=== PATIENT | female | born 1950 | race Caucasian/White ===

== ENCOUNTER 2018-01-06 15:00 | Outpatient (CLI) | payer MEDICARE | END 2018-01-06 15:01 | disposition home or self-care (01) | LOC: BICMAMMO 15:00 | PROVIDERS: ATTEND Internal Medicine Medical Oncology | DX: Z12.31 Encounter for screening mammogram for malignant neoplasm of breast (principal); M81.0 Age-related osteoporosis without current pathological fracture | CPT/HCPCS: 77063; 77067; 77080 ==

== ENCOUNTER 2018-04-14 06:46 | Outpatient (CLI) | payer MEDICARE ==
--- NOTE | 2018-04-14 08:16 | ULT ---
ABDOMINAL ULTRASOUND: DATE: 04/14/2018. PROVIDED CLINICAL HISTORY: Enlarged liver. FINDINGS: The visualized abdominal aorta, IVC, and pancreas appear normal. The liver is enlarged, measuring ab out 21.1 cm in craniocaudal dimension at the right hepatic lobe. There is coarsening and increased e chogenicity of the hepatic parenchyma compatible with fatty infiltration. There is no evidence for m ass or intrahepatic biliary ductal dilatation. The common duct is not dilated. The kidneys demonstr ate no hydronephrosis or mass. The gallbladder is not visualized compatible with the provided clinic al history of prior cholecystectomy. The spleen is enlarged, measuring about 15.6 x 6.9 x 7.8 cm. IMPRESSION: 1. Hepatosplenomegaly. 2. Fatty infiltration of the liver. POS: [facility]
== END 2018-04-14 06:47 | disposition home or self-care (01) ==
LOC: BICULT 06:46
PROVIDERS: ATTEND Family Medicine
DX: R16.2 Hepatomegaly with splenomegaly, not elsewhere classified (principal); K76.0 Fatty (change of) liver, not elsewhere classified
CPT/HCPCS: 76700

== ENCOUNTER 2021-06-13 08:42 | Outpatient (CLI) | payer MEDICARE | END 2021-06-13 08:43 | disposition home or self-care (01) | LOC: BICRAD 08:42 | PROVIDERS: ATTEND Allergy & Immunology | DX: R05.9 Cough, unspecified (principal) | CPT/HCPCS: 71046 ==

== ENCOUNTER 2021-06-27 13:43 | Outpatient (CLI) | payer MEDICARE | END 2021-06-27 13:44 | disposition home or self-care (01) | LOC: BICMAMMO 13:43 | PROVIDERS: ATTEND Internal Medicine | DX: Z13.820 Encounter for screening for osteoporosis (principal) | CPT/HCPCS: 77080 ==

== ENCOUNTER 2021-10-03 08:47 | Outpatient (CLI) | payer MEDICARE | END 2021-10-03 08:48 | disposition home or self-care (01) | LOC: BICMAMMO 08:47 | PROVIDERS: ATTEND Internal Medicine | DX: Z12.31 Encounter for screening mammogram for malignant neoplasm of breast (principal); Z91.89 Other specified personal risk factors, not elsewhere classified | CPT/HCPCS: 77063; 77067 ==

== ENCOUNTER 2023-05-14 10:07 | Emergency (ER) | payer OTHER ==
[2023-05-14] MEDS ORDERED: Acetaminophen 500 MG TAB ONE (10:47)
== END 2023-05-14 13:56 | disposition home or self-care (01) ==
LOC: ERS 10:07
DX: S00.83XA Contusion of other part of head, initial encounter (principal); S80.02XA Contusion of left knee, initial encounter; S80.01XA Contusion of right knee, initial encounter; E11.9 Type 2 diabetes mellitus without complications; I10 Essential (primary) hypertension; E78.5 Hyperlipidemia, unspecified; E03.9 Hypothyroidism, unspecified; Z79.899 Other long term (current) drug therapy; Z79.4 Long term (current) use of insulin; Z79.84 Long term (current) use of oral hypoglycemic drugs; W01.10XA Fall on same level from slipping, tripping and stumbling with subsequent striking against unspecified object, initial encounter; Y93.01 Activity, walking, marching and hiking
CPT/HCPCS: 70450; 72125

== ENCOUNTER 2023-05-28 12:37 | Emergency (ER) | payer OTHER ==
[~2023-05-28 12:37] MED LIST: Iopamidol-370 76% 500 ML MDV (1 ML CHARGE) ONE
[2023-05-28 14:57] LABS: #Eosinphils 0.2 thou/uL (0.0-0.7); #Monocytes 0.4 thou/uL (0.11-0.59); #Neutrophils 3.2 thou/uL (1.40-6.50); %Basophils 0.4 % (0.0-1.0); %Lymphocytes 24.8 % (21.0-51.0); %Monocytes 8.1 % (0.0-10.0); %Neutrophils 63.5 % (42.0-75.0); Hematocrit 33.9 % (36.0-47.0); Hemoglobin 11.1 g/dL (12.0-16.0); Mean Corpuscular HGB CONC 32.7 g/dL (32.0-36.0); Mean Corpuscular Hemoglobin 26.5 pg (27.0-31.0); Mean Corpuscular Volume 80.9 fl (78.0-98.0); Mean Platelet Volume 10.3 fL (7.4-10.4); Platelet Count 157 10x3/uL (130-400); RBC Distribution Width 14.3 % (11.5-14.5); Red Blood Cell (RBC) Count 4.19 mill/uL (4.20-5.40)
[2023-05-28 15:34] LABS: ALT (SGPT) 16 U/L (8-55); AST (SGOT) 19 U/L (5-34); Albumin 3.7 g/dL (3.4-4.8); Alkaline Phosphatase 84 U/L (40-110); Anion Gap 12 mmol/L (10-20); BUN (Urea Nitrogen) 14 mg/dL (9.8-20.1); Bilirubin, Total 0.7 mg/dL (0.2-1.2); Calc. Creatinine Clearance 0 mL/min (70-130); Calcium 9.3 mg/dL (7.8-10.44); Carbon Dioxide 28 mmol/L (23-31); Chloride 101 mmol/L (98-107); Estimated GFR 70; Globulin 3.4 g/dL (2.4-3.5); Glucose 243 mg/dL (83-110); Potassium 3.9 mmol/L (3.5-5.1); Protein, Total 7.1 g/dL (5.8-8.1); Sodium 137 mmol/L (136-145)
== END 2023-05-28 17:47 | disposition home or self-care (01) ==
LOC: ERS 12:37
DX: S06.0X0D Concussion without loss of consciousness, subsequent encounter (principal); S80.02XD Contusion of left knee, subsequent encounter; E11.9 Type 2 diabetes mellitus without complications; Z79.84 Long term (current) use of oral hypoglycemic drugs; W22.8XXD Striking against or struck by other objects, subsequent encounter
CPT/HCPCS: 36415; 80053; 83605; 85025; 87040; Q9967

== ENCOUNTER 2023-09-09 16:56 | Emergency (ER) | payer OTHER ==
[2023-09-09 17:38] LABS: #Eosinphils 0.2 thou/uL (0.0-0.7); #Monocytes 0.6 thou/uL (0.11-0.59); %Basophils 0.6 % (0.0-1.0); %Eosinophils 3.1 % (0.0-10.0); %Lymphocytes 29.4 % (21.0-51.0); %Monocytes 8.1 % (0.0-10.0); %Neutrophils 58.2 % (42.0-75.0); Hematocrit 36.5 % (36.0-47.0); Hemoglobin 12.4 g/dL (12.0-16.0); Mean Corpuscular Hemoglobin 26.2 pg (27.0-31.0); Mean Corpuscular Volume 77.2 fl (78.0-98.0); Mean Platelet Volume 11.2 fL (7.4-10.4); Platelet Count 182 10x3/uL (130-400); RBC Distribution Width 13.8 % (11.5-14.5); Red Blood Cell (RBC) Count 4.73 mill/uL (4.20-5.40); White Blood Cell (WBC) Count 6.9 10x3/uL (4.8-10.8)
[2023-09-09 17:48] LABS: Actual Bicarbonate (HCO3v) 23.5 mEq/L (22-28); Base Excess -2.8 mEq/L (-2.0 to +3.0); Calcium, Ionized (venous) 1.21 mmol/L (1.16-1.32); Chloride (VBG) 98 mmol/L (98-106); Hematocrit-VBG 39 % (36.0-47.0); Hemoglobin (Hb) 13.2 g/dL (11.7-16.1); Potassium (VBG) 4.17 mmol/L (3.70-5.30); Sodium 136 mmol/L (133-146); pH (venous) 7.318 (7.32-7.43)
[2023-09-09 17:58] LABS: Troponin I Less than 0.010 ng/mL (< 0.028)
[2023-09-09 18:01] LABS: ALT (SGPT) 15 U/L (8-55); AST (SGOT) 30 U/L (5-34); Albumin 4.1 g/dL (3.4-4.8); Alkaline Phosphatase 111 U/L (40-110); Anion Gap 14 mmol/L (10-20); BUN (Urea Nitrogen) 22 mg/dL (9.8-20.1); Calc. Creatinine Clearance 0 mL/min (70-130); Calcium 9.9 mg/dL (7.8-10.44); Carbon Dioxide 25 mmol/L (23-31); Chloride 100 mmol/L (98-107); Estimated GFR 57; Globulin 3.4 g/dL (2.4-3.5); Glucose 276 mg/dL (83-110); Lipase 45 U/L (8-78); Potassium 4.7 mmol/L (3.5-5.1); Protein, Total 7.5 g/dL (5.8-8.1); Sodium 134 mmol/L (136-145)
[2023-09-09 20:01] LABS: Bacteria/HPF None Seen HPF (None Seen); Bilirubin Negative (Negative); Blood, Urine Negative (Negative); CAUTI Indications for Culture Dysuria,urgency,freq; Clarity Clear (Clear); Glucose, Urine (Dipstick) 100 mg/dL (Negative); Ketone, Urine Negative (Negative); Leukocyte 75 Leu/uL (Negative); Nitrite Negative (Negative); Protein, Urine (Dipstick) Negative (Neg-Trace); RBC/HPF 0-3 HPF (0-3); Specific Gravity, Urine 1.007 (1.002-1.036); Squamous Epithelial 0-3 HPF (0-3); Urobilinogen Normal mg/dL (Less than 2); WBC/HPF 0-3 HPF (0-3)
[2023-09-09 20:02] LABS: Urine Culture Reflex No No
[2023-09-09] MEDS ORDERED: Fluconazole 100 MG TAB PO SCH (21:15)
== END 2023-09-09 21:35 | disposition home or self-care (01) ==
LOC: ERS 16:56
DX: B37.31 Acute candidiasis of vulva and vagina (principal); E11.65 Type 2 diabetes mellitus with hyperglycemia
CPT/HCPCS: 36416; 71045; 80053; 81001; 82805; 83690; 84484; 85025; 93005; 96360

== ENCOUNTER 2024-05-12 08:40 | Outpatient (CLI) | payer OTHER | END 2024-05-12 08:41 | disposition home or self-care (01) | LOC: BICMAMMO 08:40 | DX: Z12.31 Encounter for screening mammogram for malignant neoplasm of breast (principal); M81.0 Age-related osteoporosis without current pathological fracture; Z78.0 Asymptomatic menopausal state; Z91.89 Other specified personal risk factors, not elsewhere classified | CPT/HCPCS: 77063; 77067; 77080 ==

== ENCOUNTER 2024-07-09 11:52 | Inpatient (IN) | payer OTHER ==
[2024-07-09 12:52] LABS: #Basophils 0.05 10x3/uL (0.0-0.2); %Basophils 0.3 % (0.0-1.0); %Eosinophils 0.6 % (0.0-10.0); %Lymphocytes 15.6 % (21.0-51.0); %Monocytes 8.4 % (0.0-10.0); %Neutrophils 74.5 % (42.0-75.0); Hematocrit 42.3 % (36.0-47.0); Hemoglobin 14.3 g/dL (12.0-16.0); Mean Corpuscular HGB CONC 33.8 g/dL (32.0-36.0); Mean Corpuscular Hemoglobin 25.2 pg (27.0-31.0); Mean Corpuscular Volume 74.5 fL (78.0-98.0); Mean Platelet Volume 9.8 fL (7.4-10.4); Platelet Count 324 10x3/uL (130-400); RBC Distribution Width 14.1 % (11.5-14.5); Red Blood Cell (RBC) Count 5.68 mill/uL (4.20-5.40)
[2024-07-09 13:08] LABS: ALT (SGPT) 21 U/L (8-55); AST (SGOT) 31 U/L (5-34); Albumin 3.8 g/dL (3.4-4.8); Alkaline Phosphatase 75 U/L (40-110); Anion Gap 15 mmol/L (10-20); BUN (Urea Nitrogen) 26 mg/dL (9.8-20.1); Bilirubin, Total 1.7 mg/dL (0.2-1.2); Calc. Creatinine Clearance 0 mL/min (70-130); Calcium 9.1 mg/dL (7.8-10.44); Carbon Dioxide 24 mmol/L (23-31); Chloride 93 mmol/L (98-107); Estimated GFR 33; Globulin 3.8 g/dL (2.4-3.5); Glucose 214 mg/dL (83-110); Lipase 38 U/L (8-78); Potassium 2.9 mmol/L (3.5-5.1); Protein, Total 7.6 g/dL (5.8-8.1); Sodium 129 mmol/L (136-145)
[2024-07-09] MEDS ORDERED: Morphine 4 MG/ML VIAL ONE (13:43)
[2024-07-09] MEDS ORDERED: Ondansetron PF 4 MG/2 ML Vial ONE (13:44)
[2024-07-09] MEDS ORDERED: Iopamidol-370 76% 500 ML MDV (1 ML CHARGE) ONE (14:52)
[2024-07-09 15:51] LABS: Bacteria/HPF None Seen HPF (None Seen); Bilirubin Negative (Negative); Blood, Urine Trace (Negative); CAUTI Indications for Culture Pelvic or flank pain; Clarity Clear (Clear); Glucose, Urine (Dipstick) Normal (Negative); Ketone, Urine Negative (Negative); Leukocyte Negative Leu/uL (Negative); Nitrite Negative (Negative); Protein, Urine (Dipstick) 30 mg/dL (Neg-Trace); Squamous Epithelial 0-3 HPF (0-3); Urobilinogen Normal mg/dL (Less than 2); WBC/HPF 0-3 HPF (0-3)
[2024-07-09 15:54] LABS: Specific Gravity, Urine Greater than 1.060 (1.002-1.036); Urine Culture Reflex No No
[2024-07-09] MEDS ORDERED: dilTIAZem 25 MG/5 ML VIAL ONE (16:15)
[2024-07-09] MEDS ORDERED: Potassium Chloride 20 MEQ TAB ONE (16:15)
[2024-07-09 16:40] LABS: Troponin I 1.262 ng/mL (< 0.028)
[2024-07-09] MEDS ORDERED: Sodium Chloride 0.9% 100 ML ONE (16:45)
[2024-07-09] MEDS ORDERED: cefTRIAXone (ROCEPHIN) 1 GM VIAL ONE (16:45)
[2024-07-09] MEDS ORDERED: Aspirin Chewable 81 MG TAB ONE (17:28)
[2024-07-09 17:35] LABS: INR-International Normal Ratio 1.1; PTT 27.2 sec (22.9-36.1); Prothrombin Time 14.2 sec (12.0-14.7)
[2024-07-09 18:38] LABS: Critical Call Chem Troponin I RESULT DECREASING; Troponin I 1.244 ng/mL (< 0.028)
[2024-07-09] MEDS ORDERED: Insulin Lispro 100 UNIT/ML 10 ML VIAL SC PRN (18:58)
[2024-07-09] MEDS ORDERED: Dextrose 50% Abboject 50 ML SYRINGE SLOW IVP PRN (18:58)
[2024-07-09] MEDS ORDERED: Glucagon 1 MG/ML KIT IM PRN (18:58)
[2024-07-09] MEDS ORDERED: Dextrose 5% in Water 1,000 ML IV PRN (18:58)
[2024-07-09] MEDS ORDERED: Albuterol 200 PUFF (6.7GM INHALER) INH PRN (18:58)
[2024-07-09] MEDS ORDERED: Acetaminophen 650 MG Suppository PR PRN (19:12)
[2024-07-09] MEDS ORDERED: Morphine 2 MG/ML VIAL SLOW IVP PRN (19:13)
[2024-07-09] MEDS ORDERED: Promethazine HCl 12.5 MG in Sodium Chloride 0.9% 50 ML IVPB PRN (19:13)
[2024-07-09 19:27] VITALS: BMI 39.1
[2024-07-09] MEDS: Sodium Chloride 0.9% 1,000 ML IV SCH (19:44)
[2024-07-09] MEDS: Potassium Chloride 20 MEQ TAB PO SCH (20:04)
[2024-07-09] MEDS: Acyclovir 400 mg Tablet PO SCH (20:08)
[2024-07-09] MEDS: Heparin 10,000 UNITS/ 10 ML VIAL SLOW IVP SCH (20:51)
[2024-07-09] MEDS: Heparin 25,000 units/D5W 500 ML IVPB SCH (20:57)
[2024-07-09 21:42] LABS: Magnesium 1.4 mg/dL (1.6-2.6); Phosphorus 2.6 mg/dL (2.3-4.7)
[2024-07-10 00:12] LABS: Troponin I 0.993 ng/mL (< 0.028)
[2024-07-10 03:50] LABS: Anion Gap 12 mmol/L (10-20); BUN (Urea Nitrogen) 31 mg/dL (9.8-20.1); Calc. Creatinine Clearance 73 mL/min (70-130); Calcium 8.1 mg/dL (7.8-10.44); Carbon Dioxide 21 mmol/L (23-31); Chloride 102 mmol/L (98-107); Estimated GFR 53; Glucose 136 mg/dL (83-110); Potassium 3.5 mmol/L (3.5-5.1); Sodium 131 mmol/L (136-145)
[2024-07-10 03:51] LABS: #Basophils 0.04 10x3/uL (0.0-0.2); %Basophils 0.4 % (0.0-1.0); %Eosinophils 1.5 % (0.0-10.0); %Lymphocytes 27.6 % (21.0-51.0); %Monocytes 9.4 % (0.0-10.0); %Neutrophils 60.6 % (42.0-75.0); Hematocrit 34.4 % (36.0-47.0); Hemoglobin 11.3 g/dL (12.0-16.0); Mean Corpuscular HGB CONC 32.8 g/dL (32.0-36.0); Mean Corpuscular Hemoglobin 24.9 pg (27.0-31.0); Mean Corpuscular Volume 75.9 fL (78.0-98.0); Mean Platelet Volume 10.4 fL (7.4-10.4); Platelet Count 164 10x3/uL (130-400); RBC Distribution Width 14.3 % (11.5-14.5); Red Blood Cell (RBC) Count 4.53 mill/uL (4.20-5.40)
[2024-07-10] MEDS: Acetaminophen 325 MG TAB PO PRN (05:02)
[2024-07-10] MEDS ORDERED: Electrolyte Replacement Protocol FS PRN (08:30)
[2024-07-10] MEDS ORDERED: Magnesium 2 GM/50 ML(in water) 2 GM in Premix 1 BAG IVPB SCH (09:30)
[2024-07-10] MEDS: Magnesium Sulfate In Water 4 GM in Premix 1 BAG IVPB SCH (10:26)
[2024-07-10] MEDS ORDERED: dilTIAZem 30 MG TAB PO PRN (10:29)
[2024-07-10] MEDS ORDERED: dilTIAZem 125 MG in Sodium Chloride 0.9% 100 ML IVPB SCH (10:30)
[2024-07-10] MEDS: Vancomycin HCl 125 MG Capsule PO SCH (11:24)
[2024-07-10] MEDS: dilTIAZem 25 MG/5 ML VIAL SLOW IVP SCH (11:25)
[2024-07-10] MEDS: Potassium Chloride 20 MEQ in Premix 1 BAG IVPB SCH ×2 (11:25→23:41)
[2024-07-10] MEDS: Metoprolol Tartrate 25 MG TAB PO SCH ×2 (11:25→20:25)
[2024-07-10] MEDS: Sodium Chloride 0.9% 1,000 ML IV SCH (11:26)
[2024-07-10] MEDS: dilTIAZem 125 MG in Sodium Chloride 0.9% 100 ML IVPB SCH (11:40)
[2024-07-10] MEDS ORDERED: Amiodarone 450 MG in Dextrose 5% in Water 250 ML IVPB SCH (12:00)
[2024-07-10] MEDS: Electrolyte Replacement Protocol 1 EACH FS ONE (13:28)
[2024-07-10] MEDS: Amiodarone 150 MG, Admixture Fee 1 EACH in Dextrose 5% in Water 100 ML IVPB SCH (14:55)
[2024-07-10] MEDS ORDERED: cefTRIAXone\\ROCEPHIN 1 GM in Sodium Chloride 0.9% 100 ML IVPB SCH (17:00)
[2024-07-10 17:48] LABS: Potassium 3.3 mmol/L (3.5-5.1)
[2024-07-10] MEDS ORDERED: NS 0.9% w/ 20 MEQ KCL 1,000 ML/1,000 ML BAG IV SCH (18:00)
[2024-07-10] MEDS: Famotidine 20 MG TAB PO SCH (20:25)
[2024-07-10 21:47] VITALS: BMI 39.1
[2024-07-10 23:42] LABS: Campy jejuni + coli by PCR Negative (Negative); STEC Shiga Toxin 1+2 Negative (Negative); Salmonella spp. by PCR Negative (Negative); Shigella spp + EIEC by PCR Negative (Negative)
[2024-07-11 02:51] LABS: #Basophils 0.05 10x3/uL (0.0-0.2); %Basophils 0.6 % (0.0-1.0); %Eosinophils 2.8 % (0.0-10.0); %Lymphocytes 24.7 % (21.0-51.0); %Monocytes 8.7 % (0.0-10.0); %Neutrophils 62.6 % (42.0-75.0); Hematocrit 34.4 % (36.0-47.0); Hemoglobin 11.3 g/dL (12.0-16.0); Mean Corpuscular HGB CONC 32.8 g/dL (32.0-36.0); Mean Corpuscular Hemoglobin 25.4 pg (27.0-31.0); Mean Corpuscular Volume 77.3 fL (78.0-98.0); Mean Platelet Volume 10.3 fL (7.4-10.4); Platelet Count 173 10x3/uL (130-400); RBC Distribution Width 14.2 % (11.5-14.5); Red Blood Cell (RBC) Count 4.45 mill/uL (4.20-5.40)
[2024-07-11 03:07] LABS: ALT (SGPT) 17 U/L (8-55); AST (SGOT) 22 U/L (5-34); Albumin 3.4 g/dL (3.4-4.8); Alkaline Phosphatase 60 U/L (40-110); Anion Gap 12 mmol/L (10-20); BUN (Urea Nitrogen) 20 mg/dL (9.8-20.1); Bilirubin, Total 0.5 mg/dL (0.2-1.2); Calc. Creatinine Clearance 113 mL/min (70-130); Calcium 8.6 mg/dL (7.8-10.44); Carbon Dioxide 20 mmol/L (23-31); Chloride 105 mmol/L (98-107); Estimated GFR 89; Globulin 3.4 g/dL (2.4-3.5); Glucose 212 mg/dL (83-110); Magnesium 1.7 mg/dL (1.6-2.6); Potassium 3.7 mmol/L (3.5-5.1); Protein, Total 6.8 g/dL (5.8-8.1); Sodium 133 mmol/L (136-145)
[2024-07-11] MEDS: Magnesium 2 GM/50 ML(in water) 2 GM in Premix 1 BAG IVPB SCH (07:15)
[2024-07-11] MEDS ORDERED: dilTIAZem 125 MG in Sodium Chloride 0.9% 100 ML IVPB SCH (10:50)
[2024-07-11] MEDS: dilTIAZem 30 MG TAB PO SCH (11:45)
[2024-07-11] MEDS: Enoxaparin 100 MG (1 mL) SYRINGE SC SCH ×2 (13:15→21:38)
[2024-07-11] MEDS: Saccharomyces boulardii 250 MG CAP PO SCH (21:37)
[2024-07-11] MEDS: dilTIAZem 30 MG TAB PO PRN (21:37)
[2024-07-12 04:20] LABS: #Basophils 0.03 10x3/uL (0.0-0.2); %Basophils 0.5 % (0.0-1.0); %Eosinophils 3.3 % (0.0-10.0); %Monocytes 7.6 % (0.0-10.0); %Neutrophils 61.1 % (42.0-75.0); Hematocrit 31.8 % (36.0-47.0); Hemoglobin 10.8 g/dL (12.0-16.0); Mean Corpuscular Hemoglobin 25.7 pg (27.0-31.0); Mean Corpuscular Volume 75.7 fL (78.0-98.0); Mean Platelet Volume 11.2 fL (7.4-10.4); Platelet Count 131 10x3/uL (130-400); RBC Distribution Width 14.4 % (11.5-14.5)
[2024-07-12 04:45] LABS: Anion Gap 11 mmol/L (10-20); BUN (Urea Nitrogen) 11 mg/dL (9.8-20.1); Calc. Creatinine Clearance 124 mL/min (70-130); Calcium 8.9 mg/dL (7.8-10.44); Carbon Dioxide 25 mmol/L (23-31); Chloride 107 mmol/L (98-107); Estimated GFR 92; Glucose 170 mg/dL (83-110); Magnesium 1.6 mg/dL (1.6-2.6); Sodium 139 mmol/L (136-145)
[2024-07-12] MEDS: Magnesium 2 GM/50 ML(in water) 2 GM in Premix 1 BAG IVPB SCH ×2 (05:35→09:29)
[2024-07-12] MEDS: Insulin Lispro 100 UNIT/ML 10 ML VIAL SC PRN (05:36)
[2024-07-12] MEDS ORDERED: Digoxin 0.5 MG/2 ML AMP SLOW IVP SCH (09:15)
[2024-07-12] MEDS: Acetaminophen/Codeine 30-300mg Tablet PO PRN (12:33)
[2024-07-12] MEDS: Dronedarone HCl 400 MG TAB PO SCH (16:51)
[2024-07-12] MEDS: Lorazepam 0.5 MG TAB PO PRN (18:02)
[2024-07-12] MEDS: Albuterol 2.5 MG (3 mL) NEB NEB SCH (20:15)
[2024-07-12] MEDS: Metoprolol Tartrate 25 MG TAB PO SCH (21:09)
[2024-07-13 04:07] LABS: Anion Gap 14 mmol/L (10-20); BUN (Urea Nitrogen) 10 mg/dL (9.8-20.1); Calc. Creatinine Clearance 106 mL/min (70-130); Calcium 8.6 mg/dL (7.8-10.44); Carbon Dioxide 21 mmol/L (23-31); Chloride 105 mmol/L (98-107); Estimated GFR 82; Glucose 196 mg/dL (83-110); Magnesium 1.7 mg/dL (1.6-2.6); Potassium 3.9 mmol/L (3.5-5.1); Sodium 136 mmol/L (136-145)
[2024-07-13 07:53] VITALS: BP 160/77; TEMP 98.1
[2024-07-13] MEDS: Magnesium 2 GM/50 ML(in water) 2 GM in Premix 1 BAG IVPB SCH (08:57)
== END 2024-07-13 11:34 | disposition home or self-care (01) | DRG 371 ==
LOC: ERS 11:52 → 2NO 18:41 → PCU 07-10 13:27
PROVIDERS: ADMIT Internal Medicine; ATTEND Internal Medicine
DX: A04.72 Enterocolitis due to Clostridium difficile, not specified as recurrent (principal); I21.A1 Myocardial infarction type 2; N17.9 Acute kidney failure, unspecified; D80.1 Nonfamilial hypogammaglobulinemia; E87.1 Hypo-osmolality and hyponatremia; E78.5 Hyperlipidemia, unspecified; J45.909 Unspecified asthma, uncomplicated; E86.0 Dehydration; Z88.8 Allergy status to other drugs, medicaments and biological substances; Z90.710 Acquired absence of both cervix and uterus; Z90.49 Acquired absence of other specified parts of digestive tract; Z79.4 Long term (current) use of insulin; Z79.899 Other long term (current) drug therapy; N18.30 Chronic kidney disease, stage 3 unspecified; E11.22 Type 2 diabetes mellitus with diabetic chronic kidney disease; I12.9 Hypertensive chronic kidney disease with stage 1 through stage 4 chronic kidney disease, or unspecified chronic kidney disease; E87.6 Hypokalemia; E83.42 Hypomagnesemia; D63.1 Anemia in chronic kidney disease; Z79.01 Long term (current) use of anticoagulants; E03.9 Hypothyroidism, unspecified; I48.0 Paroxysmal atrial fibrillation
CPT/HCPCS: 36415; 36416; 51701; 71045; 74177; 80048; 80053; 81001; 83690; 83735; 84100; 84484; 85025; 85610; 85730; 87040; 87324; 87428; 87449; 87505; 93005; 93306; 94640; 96361; 96374; 96375; J0696; J1644; J1650; J1815; J2270; J2405; J3475; J3480; J7030; J7611; Q9967

== ENCOUNTER 2025-01-26 13:16 | Outpatient (CLI) | payer OTHER | END 2025-01-26 13:17 | disposition home or self-care (01) | LOC: BICRAD 13:16 | PROVIDERS: ATTEND Family Medicine | DX: M79.672 Pain in left foot (principal) ==

== ENCOUNTER 2025-02-14 08:13 | Outpatient (CLI) | payer OTHER | END 2025-02-14 08:14 | disposition home or self-care (01) | LOC: BICRAD 08:13 | PROVIDERS: ATTEND Family Medicine | DX: Z09 Encounter for follow-up examination after completed treatment for conditions other than malignant neoplasm (principal); Z86.11 Personal history of tuberculosis | CPT/HCPCS: 71046 ==

== ENCOUNTER 2025-03-07 12:06 | Outpatient (CLI) | payer OTHER | END 2025-03-07 12:07 | disposition home or self-care (01) | LOC: ULT 12:06 | PROVIDERS: ATTEND Family Medicine | DX: M79.89 Other specified soft tissue disorders (principal); R60.9 Edema, unspecified ==

== ENCOUNTER 2025-06-13 10:29 | Day surgery (SDC) | payer OTHER ==
[2025-06-10 12:14] VITALS: BMI 42.4
[2025-06-13] MEDS ORDERED: Lidocaine 1% PF 5 ML VIAL ONE (11:46)
[2025-06-13] MEDS ORDERED: PROPOFOL 200 MG/20 ML VIAL ONE (13:13)
== END 2025-06-13 14:10 | disposition home or self-care (01) ==
LOC: SDC 10:29
PROVIDERS: ATTEND Internal Medicine Gastroenterology
PROC: 0DJD8ZZ Inspection of Lower Intestinal Tract, Via Natural or Artificial Opening Endoscopic (ICD-10-PCS; principal; 2025-06-13)
DX: K64.8 Other hemorrhoids (principal); K62.89 Other specified diseases of anus and rectum; I10 Essential (primary) hypertension; E11.9 Type 2 diabetes mellitus without complications; E03.9 Hypothyroidism, unspecified; E78.2 Mixed hyperlipidemia; F32.9 Major depressive disorder, single episode, unspecified; K21.9 Gastro-esophageal reflux disease without esophagitis; G25.81 Restless legs syndrome; Z86.0100 Personal history of colon polyps, unspecified; Z98.41 Cataract extraction status, right eye; Z98.42 Cataract extraction status, left eye; Z96.653 Presence of artificial knee joint, bilateral; Z98.51 Tubal ligation status; Z90.49 Acquired absence of other specified parts of digestive tract; Z90.710 Acquired absence of both cervix and uterus; Z88.1 Allergy status to other antibiotic agents; Z88.8 Allergy status to other drugs, medicaments and biological substances; Z79.890 Hormone replacement therapy; Z79.84 Long term (current) use of oral hypoglycemic drugs; Z79.899 Other long term (current) drug therapy
CPT/HCPCS: 45378; 82962; J2704; 36416